=== PATIENT | female | born 1980 | race Caucasian/White ===

== ENCOUNTER → 2023-06-26 12:03 | Outpatient (CLI) | payer OTHER, SELFPAY ==
--- NOTE | 2023-06-26 12:12 | XR_ITS ---
FINAL REPORT CLINICAL HISTORY: Precordial chest pain COMPARISON: None FINDINGS: Two views of the chest were obtained. The heart size and pulmonary vascularity are within normal limits. The mediastinum is normal. Mild right base opacities are favored to represent represent atelectasis or pneumonia.. There is no pneumothorax. The bony thorax is intact. IMPRESSION: Mild right base opacities favor atelectasis or pneumonia. Reviewed, Interpreted and Dictated by Felix Matthews III, MD Transcribed by Marleny Foss Authenticated and [facility]
[2023-06-26 12:36] LABS: Basophils % 0.4 % (0.1-2.0); Eosinophils # 0.1 K/mm3 (0.0-0.4); Eosinophils % 1.4 % (0.1-12.0); Hematocrit 40.6 % (37.0-47.0); Hemoglobin 13.1 g/dL (12.2-16.2); Lymphocytes # 2.2 K/mm3 (0.7-4.5); Lymphocytes % 25.2 % (10-50); Mean Corpuscular HGB Conc 32.2 g/dL (31.8-35.4); Monocytes # 0.4 K/mm3 (0.1-1.0); Monocytes % 4.8 % (1.7-9.3); Neutrophils % 68.2 % (37.0-80.0); Platelet Count 283 K/mm3 (142-424); Red Blood Count 4.51 M/mm3 (4.20-5.40); Red Cell Distribution Width 12.9 % (11.5-17.5); White Blood Count 8.7 K/mm3 (4.8-10.8)
[2023-06-26 13:54] LABS: Chloride 106 mmol/L (98-107); Sodium 139 mmol/L (136-145)
[2023-06-26 13:55] LABS: Potassium 4.1 mmoL/L (3.5-5.1)
[2023-06-26 13:57] LABS: Alanine Aminotransferase 27 U/L (12-78); Albumin Level 3.9 g/dl (3.5-5.0); Alkaline Phosphatase 55 U/L (38-126); Anion Gap 11.1 mEq/L (5-15); Aspartate Amino Transferase 29 U/L (14-36); Bilirubin,Direct 0.3 mg/dl (0.0-0.4); Bilirubin,Indirect 0.2 mg/dL (0.0-0.9); Bilirubin,Total 0.5 mg/dl (0.2-1.3); Bilirubin,Unconjugated 0.2 mg/dL (0.0-1.1); Blood Urea Nitrogen 11 mg/dl (7-17); Calcium 8.7 mg/dl (8.4-10.2); Carbon Dioxide 26 mmol/L (22.0-30.0); Cholesterol 211 mg/dl (140-200); Estimated Glomerular Filt Rate 90 ml/min (>60); GFR (African American) 109 ML/MIN (>60); Glucose 112 mg/dl (74-100); Total Protein,Serum 6.8 g/dl (6.3-8.2); Triglycerides 143 mg/dl (30-150); VLDL Cholesterol 29 mg/dL (0-40)
[2023-06-26 13:58] LABS: Chol/HDL Ratio 5.1 (1-3.5); HDL Cholesterol 41 mg/dl (40-60)
[2023-06-26 14:09] LABS: Direct LDL Cholesterol 116.83 mg/dL (100-129)
[2023-06-26 14:11] LABS: 25-OH Vitamin D, Total 18.6 ng/mL (30-100); Free T4 (Free Thyroxine) 0.83 ng/dl (0.78-2.19)
[2023-06-26 14:28] LABS: Thyroid Stimulating Hormone 2.22 uIU/mL (0.465-4.68)
== END ==
PROVIDERS: PCP Family Medicine; Visit Provider Internal Medicine
DX: R06.00 Dyspnea, unspecified (principal); R07.89 Other chest pain; I10 Essential (primary) hypertension; I11.9 Hypertensive heart disease without heart failure; R60.9 Edema, unspecified; E11.9 Type 2 diabetes mellitus without complications; I63.9 Cerebral infarction, unspecified; E55.9 Vitamin D deficiency, unspecified; E66.01 Morbid (severe) obesity due to excess calories; Z68.42 Body mass index [BMI] 45.0-49.9, adult
CPT/HCPCS: 36415; 71046; 80048; 80061; 80076; 82306; 84439; 84443; 85025

== ENCOUNTER → 2023-07-08 11:13 | Outpatient (CLI) | payer OTHER, SELFPAY ==
--- NOTE | 2023-07-08 11:18 | NM_ITS ---
APPROVED REPORT Exam: Nuclear Stress Test Indication: HTN, DM, FM HX, C.P., OBESITY Patient Location: Outpatient Stress Tech: Mindi Leon NM Tech:Leslie Alvarez MARGUERITE RT (R)(N)(M) Ht: 5 ft 3 in Wt: 263 lbs Bra Size: 38DD HR: 80 bpm BP: 138/79 mmHg BSA: 2.17 m2 Rhythm: NSR TID: 1.40 BMI: 46.5 History: HTN, DM, FM HX, C.P., OBESITY Procedure: Patient received 0.4 mg of intravenous Lexiscan, resting heart rate 80 bpm, resting blood pressure 138/79 mmHg, with Lexiscan maximum heart rate achieved was 124 bpm which is % of the maximum predicted heart rate and blood pressure was 145/88 mmHg. With Lexiscan, patient denied any complaint of chest pain. Cardiac Stress and Resting SPECT Images: Cardiac Stress and Resting SPECT images were obtained using technetium 99m Myoview 31.4 mCi stress and 10.68 mCi at rest. Resting and stress imaging in supine and prone positions demonstrate medium sized, moderate, partially reversible perfusion defect in the anterior and anterior lateral LV otto. There is also a medium sized, moderate, predominantly reversible perfusion defect in the basal to mid inferior LV wall. There is increased transient ischemic dilatation ratio (TID 1.40), suggestive of possible multivessel disease or balanced ischemia. Gated imaging demonstrates low-normal global and regional LV systolic function. LVEF is calculated at 52%. Conclusion: Medium sized, moderate, partially reversible perfusion defect in the anterior and anterior lateral LV otto. There is also a medium sized, moderate, predominantly reversible perfusion defect in the basal to mid inferior LV wall. Findings are suggestive of partial reversible ischemia. Increased transient ischemic dilatation ratio (TID 1.40), suggestive of possible multivessel disease or balanced ischemia. Gated imaging demonstrates low-normal global and regional LV systolic function. LVEF is calculated at 52%. Electronically signed by : Elizabeth Bateman MD 07/13/2023 22:39:00
--- NOTE | 2023-07-08 13:05 | CA_ITS ---
APPROVED REPORT EXAM: Comprehensive 2D, Doppler, and color-flow Echocardiogram Skilled Laborer: Amanda Crystal RDCS Ht: 5 ft 3 in Wt: 264lbs BSA: 2.18 BP: 140/69 mmHg Indications: SOA,HTN,EDEMA 2D Dimensions LVDd 1.99 cm F: 3.9 - 5.3 M-Mode Dimensions RVDd 3.72 cm (0.9-2.6) LA Diam 3.13 cm (1.9-4.0) LVDd 3.86 cm (3.5-5.7) Ao Diam 2.76 cm (2.0-3.7) LVDs 2.51 cm (3.5-5.7) IVSd 0.47 cm (0.6-1.1) PWd 0.74 cm (0.6-1.1) EF (Teich) 65.00% FS 35.00% EDV (Teich) 64.30 mL TAPSE 1.68 (<1.7) ESV (Teich) 22.50 mL LV Diastology E Decel Time 150.00 (160-240 msec) E/A Ratio 1.3 MED E' 8.20 (< 7 cm/sec) E'/MED E' Ratio 11.73 (>14) LAT E' 9.10 (<10 cm/sec) E/LAT E' Ratio 10.57 (>14) Mitral Valve MV E Max Hamzah. 96.00 (40-130 cm/s) MV A Velocity 73.00 (40-130 cm/s) E/A Ratio 1.33 MV Decel. Time 150.00 (160-240 ms) MV PHT 44.00 ms Left Ventricle The left ventricle is normal size. The left ventricular systolic function is normal. The left ventricular ejection fraction is within the normal range. There is normal left ventricular wall thickness. There is normal LV segmental wall motion. The left ventricular diastolic function is normal. LVEF is 55%. Right Ventricle The right ventricle is normal size. The right ventricular systolic function is normal. Atria The left atrium size is normal. The right atrium size is normal. Lipomatous hypertrophy of the interatrial septum is present. There is no Doppler evidence of interatrial shunt. Aortic Valve The aortic valve opens well. There is no aortic valvular stenosis. No aortic regurgitation is present. Mitral Valve The mitral valve is normal in structure. No evidence of mitral valve stenosis. Mild mitral regurgitation. Tricuspid Valve The tricuspid valve leaflets are thin and pliable. Trace tricuspid regurgitation. There is insufficient TR jet to estimate RVSP. Pulmonic Valve The pulmonary valve is normal in structure. Trace pulmonic regurgitation. Great Vessels The aortic root is normal in size. The ascending aorta is normal in size. IVC is normal in size and collapses >50% with inspiration. Pericardium There is no pericardial effusion. Other Information Study Quality: Adequate Conclusion Normal biventricular systolic function. Mild MR. Electronically signed by : Elizabeth Bateman MD 07/09/2023 20:51:04
--- NOTE | 2023-07-08 14:05 | CA_ITS ---
APPROVED REPORT Exam: Pharmacologic Technologist: Mindi Leon Ht: 5 ft 3 in Wt: 264 lbs BSA: 2.18 m2 HR: 73 bpm BP: 138/79 mmHg Rhythm: NSR Indications: Chest pain Medical History Medications: Tirzepatide,,,,, Stress Test Details Test: LEXISCAN HR Resting HR: 80 bpm Max Heart Rate (APMHR): 175 bpm Max HR Achieved: 124 bpm Target HR (85% APMHR): 149 bpm % of APMHR: 71 Recovery HR: 95 bpm BP Resting BP: 138.0/79.0 mmHg Max BP: 145.0/88.0 mmHg Recovery BP: 136.0/75.0 mmHg ECG Resting ECG: Sinus rhythm Stress ECG: No significant ST changes Arrhythmia: None Clinical Exercise duration: 04:00 min Highest Stage Achieved: Exercise capacity: 1.0 METs Stress ECG Conclusion Symptoms: Chest pain, headache. Arrhythmias/Ectopy: None ST-T Changes: No significant ST changes Conclusion: Unremarkable Lexiscan stress test. Myoview images are reported separately. Test Summary REST . . . . . . . Resting REST 06:08 . . 80 . 138/ 79 . . Stage 1 . . . . . . . Myoview Injected Stage 1 01:00 . . 123 . . . . Stage 2 . . . . . . . Chest pain Stage 2 01:00 . . 109 . . . . Stage 3 01:00 . . 98 . 145/ 88 . . Stage 4 01:00 . . 96 . 131/ 80 . Stop exercise at 04:00 RECOVERY 01:00 . . 99 . 132/ 76 . . RECOVERY 02:00 . . 87 . 132/ 76 . . RECOVERY 03:00 . . 86 . 128/ 77 . . RECOVERY 04:00 . . 83 . 128/ 77 . . RECOVERY 05:00 . . 89 . 128/ 77 . . RECOVERY 05:26 . . 97 . 136/ 75 . . Electronically signed by : Elizabeth Bateman MD 07/13/2023 22:35:52
== END ==
PROVIDERS: PCP Family Medicine; Visit Provider Internal Medicine
DX: I10 Essential (primary) hypertension (principal); R07.89 Other chest pain; R60.9 Edema, unspecified; E55.9 Vitamin D deficiency, unspecified; E66.01 Morbid (severe) obesity due to excess calories; Z68.42 Body mass index [BMI] 45.0-49.9, adult
CPT/HCPCS: 78452; 93017; 93306; A9502; J2785

== ENCOUNTER → 2023-07-29 13:06 | Outpatient (CLI) | payer OTHER, SELFPAY ==
--- NOTE | 2023-07-29 13:18 | CT_ITS ---
FINAL REPORT TECHNIQUE: Axial imaging of the chest is obtained after the administration of contrast. 3-D MIP reformatted images were also obtained and reviewed per PE protocol. CLINICAL HISTORY: personal hx superficial thrombosis, family hx PE COMPARISON: None FINDINGS: The pulmonary arteries are well filled. There is no evidence of pulmonary embolus. There is no aortic dissection or intimal flap. There is no mediastinal, hilar, or axillary lymphadenopathy. The lungs are clear. There is no pleural or pericardial effusion. Limited evaluation of the upper abdomen is without acute abnormality. No acute osseous abnormality. IMPRESSION: No evidence of pulmonary embolism or aortic dissection. Reviewed, Interpreted and Dictated by Shawanda Jo MD Transcribed by Sanjana Strauss Authenticated and [facility]
[2023-07-29 13:50] LABS: Blood Urea Nitrogen 6 mg/dl (7-17); Estimated Glomerular Filt Rate 90 ml/min (>60); GFR (African American) 109 ML/MIN (>60)
== END ==
PROVIDERS: PCP Family Medicine; Visit Provider Nurse Practitioner
DX: R06.00 Dyspnea, unspecified (principal); R07.89 Other chest pain; R55 Syncope and collapse; I10 Essential (primary) hypertension; I80.9 Phlebitis and thrombophlebitis of unspecified site; R60.9 Edema, unspecified; R94.39 Abnormal result of other cardiovascular function study; E66.01 Morbid (severe) obesity due to excess calories; Z68.42 Body mass index [BMI] 45.0-49.9, adult; Z82.49 Family history of ischemic heart disease and other diseases of the circulatory system
CPT/HCPCS: 36415; 71275; 82565; 84520; 93270; Q9967

== ENCOUNTER 2023-08-26 07:43 | Day surgery (SDC) | payer OTHER, SELFPAY ==
[2023-08-26] VITALS (14 sets, daily range): BP systolic 96–132; BP diastolic 53–82; PULSE 63–79; RESP 15–20; O2SAT 92–99; BMI 46.5
--- NOTE | 2023-08-26 07:19 | IR_ITS ---
APPROVED REPORT Patient Location: Outpatient Sports Doctor: MARGUERITE Erickson RT (R) PROCEDURES Left heart catheterization Left ventriculogram Selective coronary angiogram INDICATION Abnormal Myoview, Angina pectoris, Informed consent was obtained prior to the procedure. COMPLICATIONS None Estimated Blood Loss: Less than 10 mls TECHNIQUE One percent lidocaine used to anesthetize the right anterior aspect of the wrist. The right radial artery was accessed via the Seldinger technique. A 6 Maori sheath was placed in the right radial artery. 2.5 mg of Verapamil, 800 mcg of nitroglycerin, 1mg Lidocaine and 5000 U Heparin were given through the arterial sheath. The papa catheter was also used to perform left heart catheterization, left ventriculogram and selective coronary angiogram. At the end of the procedure the sheath was removed good hemostasis was achieved using Traclet band, patient was transferred to the postop holding area in stable condition. ANGIOGRAPHIC RESULTS The left main artery Normal The left anterior descending artery Normal The circumflex artery Dominant normal The right coronary artery Normal The LOVETT ventriculogram reveals Normal 65% The left ventricular end-diastolic pressure 20 to 25 mmHg IMPRESSION Normal coronary arteries Normal ejection fraction Elevated LVEDP consistent with diastolic dysfunction PLAN 1. Medical management 2. Weight loss exercise 3. Sleep study Electronically signed by : Dajuan Sherman MD 08/26/2023 10:50:34
[2023-08-26 09:07] LABS: Basophils # 0.1 K/mm3 (0-0.2); Basophils % 0.9 % (0.1-2.0); Eosinophils # 0.2 K/mm3 (0.0-0.4); Eosinophils % 2.8 % (0.1-12.0); Hematocrit 41.2 % (37.0-47.0); Hemoglobin 13.7 g/dL (12.2-16.2); Lymphocytes # 2.2 K/mm3 (0.7-4.5); Lymphocytes % 32.8 % (10-50); Mean Corpuscular HGB Conc 33.1 g/dL (31.8-35.4); Mean Corpuscular Volume 90.4 fl (81-99); Mean Platelet Volume 8.8 fl (7.4-10.4); Monocytes # 0.5 K/mm3 (0.1-1.0); Monocytes % 7.4 % (1.7-9.3); Neutrophils # 3.8 K/mm3 (1.8-7.8); Neutrophils % 56.1 % (37.0-80.0); Platelet Count 247 K/mm3 (142-424); Red Blood Count 4.56 M/mm3 (4.20-5.40); Red Cell Distribution Width 12.9 % (11.5-17.5); White Blood Count 6.8 K/mm3 (4.8-10.8)
[2023-08-26 09:13] LABS: Chloride 100 mmol/L (98-107); Sodium 139 mmol/L (136-145)
[2023-08-26 09:16] LABS: Blood Urea Nitrogen 8 mg/dl (7-17); Creatinine Clearance Estimated 73 mL/min (50-200); Estimated Glomerular Filt Rate 78 ml/min (>60); GFR (African American) 94 ML/MIN (>60)
[2023-08-26 09:17] LABS: Calcium 8.6 mg/dl (8.4-10.2); Carbon Dioxide 32 mmol/L (22.0-30.0); Glucose 117 mg/dl (74-100)
[2023-08-26 10:42] LABS: HCG Qualitative, Serum Negative (Negative)
== END 2023-08-26 14:36 | disposition home or self-care (01) ==
PROVIDERS: PCP Family Medicine; Visit Provider Internal Medicine
DX: R94.39 Abnormal result of other cardiovascular function study (principal); E66.01 Morbid (severe) obesity due to excess calories; Z68.42 Body mass index [BMI] 45.0-49.9, adult; I10 Essential (primary) hypertension; R07.89 Other chest pain; Z82.49 Family history of ischemic heart disease and other diseases of the circulatory system; I20.89 Other forms of angina pectoris; F17.210 Nicotine dependence, cigarettes, uncomplicated
CPT/HCPCS: 80048; 84703; 85025; 93458; 99152; C1725; C1760; C1769; J1644; Q9967

== ENCOUNTER → 2023-09-04 11:44 | Outpatient (CLI) | payer OTHER, SELFPAY ==
[2023-09-04 12:52] LABS: Activated Partial Thrombo Time 24.7 seconds (22.8-30.6); INR 1.01 (0.9-1.1); Prothrombin Time 10.9 seconds (10.1-12.5)
[2023-09-05 16:13] LABS: Anti-Cardiolipin Antibody IgG <9 GPL U/mL (0-14)
[2023-09-06 06:12] LABS: Anti-Thrombin III Antigen 98 % (72-124); Protein C Functional 140 % (73-180); Protein S, Free 119 % (61-136); Protein S, Total 129 % (60-150); Protein S-Functional 104 % (63-140)
[2023-09-07 17:04] LABS: Beta-2 Glycoprotein I Ab, IgG <9 (0-20); Beta-2 Glycoprotein I Ab, IgM <9 (0-32)
[2023-09-08 10:08] LABS: Lupus Reflex Interpretation Comment: (.); PTT-LA 29.1 sec (0.0-43.5); dRVVT 36.5 sec (0.0-47.0)
== END ==
LOC: LAB 11:45
PROVIDERS: PCP Family Medicine; Visit Provider Internal Medicine Medical Oncology
DX: D68.59 Other primary thrombophilia (principal); I80.01 Phlebitis and thrombophlebitis of superficial vessels of right lower extremity; Z83.2 Family history of diseases of the blood and blood-forming organs and certain disorders involving the immune mechanism
CPT/HCPCS: 36415; 81240; 81241; 85301; 85302; 85305; 85306; 85610; 85613; 85730; 86146; 86147

== ENCOUNTER 2023-12-11 10:45 | Outpatient (CLI) | payer OTHER, SELFPAY ==
--- NOTE | 2023-12-11 10:46 | CA_ITS ---
FINAL REPORT TECHNIQUE: Color Doppler, duplex Doppler and compression sonography of the right lower extremity venous system was performed. CLINICAL HISTORY: right lower extremitiy swelling. COMPARISON: None FINDINGS: There is no evidence of deep venous thrombosis from the level of the groin to the calf. The veins are patent and compressible. IMPRESSION: No evidence of deep venous thrombosis right lower extremity. Reviewed, Interpreted and Dictated by Felix Matthews III, MD Transcribed by Sanjana Strauss Authenticated and [facility]
== END 2023-12-11 23:59 ==
LOC: RT 10:46
PROVIDERS: PCP Family Medicine; Visit Provider Physician Assistant
DX: I80.9 Phlebitis and thrombophlebitis of unspecified site (principal); R60.9 Edema, unspecified; R55 Syncope and collapse; R06.09 Other forms of dyspnea; I10 Essential (primary) hypertension; E66.01 Morbid (severe) obesity due to excess calories; Z82.49 Family history of ischemic heart disease and other diseases of the circulatory system; Z68.41 Body mass index [BMI] 40.0-44.9, adult; Z72.0 Tobacco use
CPT/HCPCS: 93971